=== PATIENT | female | born 1985 | race Caucasian/White ===

== ENCOUNTER 2017-10-18 12:53 | Outpatient (CLI) | payer SELFPAY ==
[~2017-10-18] VITALS: Ht 167.6 cm; Wt 85.9 kg
[~2017-10-18 12:53] MED LIST: BIRTH CONTROL PILLS; EQUALINE PRENATAL PO; LORTAB 5/500 501 TAB PO; MOTRIN 600600 MG/TAB PO
[2017-10-18 13:19] VITALS: BP 129/67; PULSE 99; TEMP 97.8
[2017-10-18 13:28] LABS: COLLECTION METHOD CLEAN CATCH
[2017-10-18 13:31] LABS: BASO % 0.2 % (0.0-2.0); EOS % 0.4 % (0-4.0); GRAN % 81.9 % (42.2-75.2); HEMOGLOBIN 12.2 g/dl (12.5-16.0); LYMPH # 0.8 (1.2-3.4); LYMPH % 9.1 % (20.0-51.0); MEAN CELL VOLUME 88 fl (80.0-100.0); MEAN CORPUSCULAR HEMOGLOBIN 31 pg (27.0-31.0); MEAN CORPUSCULAR HGB CONC 35 g/dl (33.0-37.0); MEAN PLATELET VOLUME 9.4 fl (7.4-10.4); MONO # 0.7 (0.1-0.6); MONO % 7.7 % (1.7-9.3); PLATELET COUNT 193 K/mm3 (130-400); RED BLOOD COUNT 3.93 M/mm3 (4.10-5.30); REDCELL DISTRIBUTION WIDTH-CV 14.2 % (11.5-14.5)
[2017-10-18 13:35] LABS: HEMATOCRIT 34.5 % (37.0-47.0); PH 6 (5-8); SQUAMOUS EPITHELIAL None Seen /hpf; URINE APPEARANCE Clear; URINE BACTERIA None Seen /hpf; URINE BILIRUBIN Negative (NEGATIVE); URINE BLOOD Negative (NEGATIVE); URINE COLOR Straw; URINE GLUCOSE Negative (NEGATIVE); URINE KETONE Negative (NEGATIVE); URINE LEUKOCYTE ESTERASE Negative (NEGATIVE); URINE NITRATE Negative (NEGATIVE); URINE PROTEIN(semi-quant) Negative (NEGATIVE); URINE RBC 0-2 /hpf; URINE UROBILINOGEN Negative (NEGATIVE); URINE WBC 0-2 /hpf
[2017-10-18 13:41] LABS: ALBUMIN 3.6 gm/dL (3.5-5.0); BILIRUBIN,TOTAL 0.7 mg/dL (0.0-1.0); CREATININE, serum 0.57 mg/dL (0.52-1.25); TOTAL PROTEIN 7.2 gm/dL (6.4-8.2)
[2017-10-18] MEDS ORDERED: K-DUR20 MEQ PO (13:47)
[2017-10-18 14:00] VITALS: BP 129/67; PULSE 99; TEMP 97.8
== END 2017-10-18 14:00 | disposition home or self-care (01) ==
LOC: LDRO 12:53
PROVIDERS: Obstetrics & Gynecology
DX: O99.613 Diseases of the digestive system complicating pregnancy, third trimester (principal); R19.7 Diarrhea, unspecified; Z3A.29 29 weeks gestation of pregnancy
CPT/HCPCS: J7120

== ENCOUNTER 2017-12-27 19:27 | Inpatient (IN) | payer BC ==
[2017-12-27] VITALS (9 sets, daily range): BP systolic 102–127; BP diastolic 56–73; PULSE 73–93; TEMP 97.8–98.2
[~2017-12-27] VITALS: Ht 167.6 cm; Wt 92.3 kg
[~2017-12-27 19:27] MED LIST changes: +K-DUR20 MEQ PO
[2017-12-27 21:53] LABS: BASO % 0.3 % (0.0-2.0); EOS # 0.1 (0.0-0.7); EOS % 1.1 % (0-4.0); GRAN # 8.8 (1.4-6.5); GRAN % 71.7 % (42.2-75.2); LYMPH # 2.4 (1.2-3.4); LYMPH % 19.8 % (20.0-51.0); MEAN CELL VOLUME 86 fl (80.0-100.0); MEAN CORPUSCULAR HEMOGLOBIN 29 pg (27.0-31.0); MEAN CORPUSCULAR HGB CONC 34 g/dl (33.0-37.0); MONO # 0.8 (0.1-0.6); MONO % 6.4 % (1.7-9.3); PLATELET COUNT 201 K/mm3 (130-400); RED BLOOD COUNT 4.09 M/mm3 (4.10-5.30); REDCELL DISTRIBUTION WIDTH-CV 13.7 % (11.5-14.5)
[2017-12-28] VITALS (35 sets, daily range): BP systolic 85–137; BP diastolic 42–75; PULSE 68–120; TEMP 98–99
[2017-12-29 08:40] VITALS: BP 135/76; PULSE 62; TEMP 97.4
[2017-12-29] MEDS ORDERED: MOTRIN 800800 MG/TAB PO (09:26)
[2017-12-29] MEDS ORDERED: PERCOCET 325 MG1 TA2 PO (09:27)
[2017-12-29 11:00] VITALS: BP 93/49; PULSE 90; TEMP 97.8
== END 2017-12-29 15:00 | disposition home or self-care (01) | DRG 775 ==
LOC: LDRO 19:27 → LDR 21:00 → OB 21:00
PROVIDERS: Obstetrics & Gynecology
PROC: 10E0XZZ Delivery of Products of Conception, External Approach (ICD-10-PCS; principal; 2017-12-27)
PROC: 0HQ9XZZ Repair Perineum Skin, External Approach (ICD-10-PCS; 2017-12-27)
PROC: 3E033VJ Introduction of Other Hormone into Peripheral Vein, Percutaneous Approach (ICD-10-PCS; 2017-12-27)
DX: O75.89 Other specified complications of labor and delivery (principal); O69.1XX0 Labor and delivery complicated by cord around neck, with compression, not applicable or unspecified; O70.0 First degree perineal laceration during delivery; Z37.0 Single live birth; Z3A.39 39 weeks gestation of pregnancy
CPT/HCPCS: J2210; J2590; J2795; J7120

== ENCOUNTER 2019-10-10 07:40 | Inpatient (IN) | payer BC ==
[~2019-10-10] VITALS: Ht 167.6 cm; Wt 94.5 kg
[~2019-10-10 07:40] MED LIST changes: +MOTRIN 800800 MG/TAB PO; +PERCOCET 325 MG1 TA2 PO
[2019-10-11] VITALS (67 sets, daily range): BP systolic 16–134; BP diastolic 42–71; PULSE 62–130; TEMP 97.7–99.4
[2019-10-11] MEDS ORDERED: TYLENOL 500MG500 MG PO (07:40)
[2019-10-11 08:37] LABS: BASO % 0.3 % (0.0-2.0); EOS # 0.1 (0.0-0.7); EOS % 0.5 % (0-4.0); GRAN # 7.2 (1.4-6.5); GRAN % 77.4 % (42.2-75.2); HEMOGLOBIN 11.3 g/dl (12.5-16.0); LYMPH # 1.4 (1.2-3.4); LYMPH % 14.7 % (20.0-51.0); MEAN CELL VOLUME 88 fl (80.0-100.0); MEAN CORPUSCULAR HEMOGLOBIN 30 pg (27.0-31.0); MEAN CORPUSCULAR HGB CONC 34 g/dl (33.0-37.0); MEAN PLATELET VOLUME 10.4 fl (7.4-10.4); MONO # 0.6 (0.1-0.6); MONO % 6.5 % (1.7-9.3); PLATELET COUNT 192 K/mm3 (130-400); REDCELL DISTRIBUTION WIDTH-CV 13.6 % (11.5-14.5)
[2019-10-11 08:38] LABS: HEMATOCRIT 33.6 % (37.0-47.0)
--- NOTE | 2019-10-11 08:38 | NUR ---
0724-G4L2 39[address] Mccormick ambulatory to LDR 5. Patient changed into gown and placed on EFM. Patient sharifa LOF or VB. Reports GFM. Right LE in walking boot from ankle injury. Assessment complete. 0747-IV to left hand, blood collected and sent to lab. LR infusing, see EMAR. Consents reviewed and signed. 0801-SVE /3, BOWI Patient up to bathroom. 0809-Patient back to bedside sitting in recliner, Pitocin started at 2mu/min per order and protocol, see EMAR. 0840-Patint back up to bathroom, reports bowel movement. 0850-Returns to recliner and back on EFM.
--- NOTE | 2019-10-11 09:18 | NUR ---
0915-Dr. Singh to unit. Reviews FHR monitor. In to see patient and reviews plan of care. Patient to bed for SVE 09-SVE by /-3, AROM clear fluid noted. Peyton care provided.
--- NOTE | 2019-10-11 09:41 | NUR ---
0941-Patient to bathroom, returns to bedside rocking chair. Denies needs.
--- NOTE | 2019-10-11 10:25 | NUR ---
1025-Dr. Singh sitting at unit desk. Reviews FHR monitor. Patient standing at bedside. Difficulty tracing contractions, adjusted EFM.
--- NOTE | 2019-10-11 11:28 | NUR ---
Dr. Singh in to see patient and review plan of care. No new orders.
--- NOTE | 2019-10-11 12:00 | NUR ---
1200-Patient up to bathroom, returns to bed WL. SVE /-3. Dr. Singh updated on variable decels and SVE. See yiscian notification.
--- NOTE | 2019-10-11 12:30 | NUR ---
1330-Patient up to bathroom. Returns to bedside standing. Requests Epidural. IVF bolus started. 1341-CHRIS Abreu notified.
--- NOTE | 2019-10-11 14:07 | NUR ---
1407-CHRIS Abreu to bedside. Patient sitting upright on bedside for epidural placement. 1419-Test dose administered by CRAN. Brady VSS. Patient tolerated well. See anesthesia record. 1431-CHRIS Abreu remains at bedside talking with patient and spouse. Patient becomes pale and reports "feel groggy." BP 87/47 MHR 79, FHR remains reactive. Patient head of bed laid back. IVF bolus. 1534-10mg ephedrine given per anesthesia order. 1538-Patient remains 'groggy' Maternal BP 88/52 MHR 56, FHR remains reactive. 10mg ephedrine given per anesthesia order. 1441-Patient reports " I feel a little better." Maternal BP 117/64 MHR 66.
--- NOTE | 2019-10-11 15:30 | NUR ---
1530-Duron placed by this RN to DD, clear yellow urine return. SVE /-3, clear fluid. Peyton care provided. Updated MD on patient and FHR monitor, see phyisician notification.
--- NOTE | 2019-10-11 16:45 | NUR ---
1645-Dr. Singh on unit. Reviews FHR monitor. In to see patient. SVE by MD 3-/-3. IUPC placed by MD. Updated patient on plan of care. Orders to increase pitocin to 32mu/min at this time. 1710-Pitocin to 32mu/min, see flow record. MD remains on unit at desk. 1740-MD off unit. Orders to have next shift check patient and update him with SVE following shift change at 1800.
--- NOTE | 2019-10-11 18:30 | NUR ---
3251-8419 contractions every 2.50-3 minutes. 185 MVUs
--- NOTE | 2019-10-11 19:30 | NUR ---
2821-2255 contractions every 2-3 minutes. 215 MVUs.
--- NOTE | 2019-10-11 20:30 | NUR ---
4798-0604 contractions every 2-3 minutes. 175 MVUs.
--- NOTE | 2019-10-11 21:30 | NUR ---
0717-4864 Contractions every 2-3 minutes. 210 MVUs.
--- NOTE | 2019-10-11 22:30 | NUR ---
3387-8048 contractions every 2-3 minutes. 170 MVUs.
--- NOTE | 2019-10-11 23:35 | NUR ---
Pt calls out stating she feels a lot of pressure. SVE /-2. Dr. Snigh notified. Room set up for delivery.
--- NOTE | 2019-10-11 23:53 | NUR ---
2350 - Pt positioned into footplates. Educated on pushing techniques, verbalized understanding. Dr. Singh gowned and gloved at perineum. Duron catheter removed. Initial push at this time. 2352 - Spontaneous vaginal delivery of viable boy. Nuchal cord x 1. stimulated at perineum by Dr. Singh. Infant then placed on mothers abdomen, care of assumed to Nursery RN, Ritu Castillo. Cord clamped x [address] Singh and cut by FOB. Cord blood obtained. Pitocin off. 2355 - Spontaneous delivery of intact placenta. Pitocin restarted at 333 mL/hr per protocol. Fundal massage initiated by this RN. Fundus firm and down 1 from umbilicus. Small amount of free flow bleeding noted. Repair of periurethral laceration and 2nd degree laceration by Dr. Singh. 0007 - Epidural turned off. Pericare provided. New chux beneath patient. Ice pack to perineum. recovery started. See physician delivery note.
[2019-10-12] VITALS (11 sets, daily range): BP systolic 87–117; BP diastolic 48–71; PULSE 71–106; TEMP 98–98.5
--- NOTE | 2019-10-12 01:45 | NUR ---
Pt BP 87/48, pt feeling nauseous and light headed. Ephedrine given at 0150, see MAR. Recommend patient get some rest and will continue to monitor.
--- NOTE | 2019-10-12 03:40 | NUR ---
Pt called out needing to void. Pt reports feeling better, not nauseous or light headed. Pt able to lift and hold each leg off of bed for 5 seconds. Repositioned to sitting on edge of bed. Epidural catheter removed. Tip smooth, blue, and intact. Pt able to ambulate to bathroom with standby assistance. Pt able to void 1000. Pericare explained and provided. Mesh panties and peripad applied. New gown on. Pt transferred to room 207 with belongings.
--- NOTE | 2019-10-12 10:17 | NUR ---
Percocet 5/325 mg one given per request and as ordered.
[2019-10-13 06:30] VITALS: BP 95/53; PULSE 62; TEMP 97.7
--- NOTE | 2019-10-13 06:30 | NUR ---
Rests in bed, alert. Request pain medication. Ibuprofen 800 mg, percocet 5/325 mg two given per request and as ordered.
[2019-10-13] MEDS ORDERED: MOTRIN 800800 MG/TAB PO (08:07)
[2019-10-13] MEDS ORDERED: PERCOCET 325 MG1 TA2 PO (08:07)
--- NOTE | 2019-10-13 10:15 | NUR ---
Rests in chair, baby. Denies any discomfort or needs at this time.
--- NOTE | 2019-10-13 13:15 | NUR ---
Rests in bed, alert. Request pain medication. Percocet 5/325 mg two given per request and as ordered.
== END 2019-10-13 14:00 | disposition home or self-care (01) | DRG 807 ==
LOC: OB 10-11 07:18 → LDR 10-11 07:18 → OB 10-12 04:00
PROVIDERS: ADMIT Obstetrics & Gynecology
PROC: 10E0XZZ Delivery of Products of Conception, External Approach (ICD-10-PCS; principal; 2019-10-11)
PROC: 0KQM0ZZ Repair Perineum Muscle, Open Approach (ICD-10-PCS; 2019-10-11)
PROC: 0UQMXZZ Repair Vulva, External Approach (ICD-10-PCS; 2019-10-11)
DX: O70.1 Second degree perineal laceration during delivery (principal); Z37.0 Single live birth; O71.82 Other specified trauma to perineum and vulva; Z3A.39 39 weeks gestation of pregnancy
CPT/HCPCS: J2405; J2590; J7120